=== PATIENT | male | born 1955 | race Caucasian/White ===

== ENCOUNTER 2023-09-10 08:12 | Outpatient (AMB) | payer MEDICARE, MEDICAID, SELFPAY ==
[2023-09-10 08:25] VITALS: BP 96/62; BMI 28.3
--- NOTE | 2023-09-10 08:25 | MHC.OFFVIS ---
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 He reports main concern today is his bilateral shoulder pain. This limits his ability to care for himself and perform activities of daily living. Pain has been present for last several years, progressively worsening. Rated today as 7/10, constant, worse with activity . He denies inciting injury or trauma. 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 Denies radiation of the pain down either upper extremity. Denies burning, tingling, pins and needles of either upper extremity He does endorse some difficulty with use of both arms secondary to shoulder pain. Inability to raise arms over his head secondary to bilateral shoulder pain. Pain with behind the back reach. Patient states he has had x-rays for his shoulders, results are not available for review. He had MRI of his neck <1 year ago which is also unavailable for review. Results of x-ray and MRI have been requested from his primary care doctor's office Patient completed physical therapy approximately 6 months ago with no help he continues with home exercise program. He takes Tylenol with minimal relief. He is unable to take nonsteroidal anti-inflammatory medications secondary to use of Xarelto. Patient was prescribed gabapentin by his primary care doctor, he will be picking it up from the pharmacy and starting tomorrow. In terms of muscle damage condition is described as aching, stabbing, sharp, shooting, dull, tiring Pain is negatively impacting patient's enjoyment of life, general activity, mood, recreational activities, sleep and walking. Patient is currently on Xarelto. Denies implantable devices, pacemaker defibrillator Reports quit drinking alcohol 1 year ago. Denies current use of tobacco, nicotine or illicit substances. [facility] Medical History (Updated 09/10/23 @ 12:41 by Aminah Cosby, FILLING OPERATOR, CUSTOMER MANAGEMENT SPECIALIST) Alcohol dependence Essential hypertension Pulmonary embolism Joint pain Hyperlipemia Atrial fibrillation Hyperthyroidism Major depression Degenerative joint disease involving multiple joints Phlebitis and thrombophlebitis Gouty arthropathy Benign essential HTN Adenomatous colon polyp Pneumonia Deep venous thrombosis Tobacco use Colonoscopy refused Chest pain Impaired fasting glucose Dyspnea Hypercoagulable state Posterior vitreous detachment Gastro-esophageal reflux Social History (Updated 09/10/23 @ 08:29 by TIMBO Short) Patient Tobacco Use Status: Former Tobacco user Review of Systems Const All systems reviewed & are unremarkable except as noted in HPI and below Physical Exam Vital Signs: Last Vital Signs BP 96/62 09/10/23 08:25 BMI result Body Mass Index 28.3 General: awake, alert, oriented. Answers questions appropriately. Fully engaged in examination. Skin: warm, dry, intact HEENT: Normocephalic. Hearing intact. Cardiac: External chest normal in appearance. Respiratory: No cough, audible wheezing or stridor. Abdomen: without gross distension. MS: Cervical: Full ROM. Spurling positive. Minimally tender over midline vertebrae and paraspinal muscles. nontender over trapezius bilaterally BUE: significantly limited ROM. pain with limited overhead reach. pain with behind back reach. Crossbody reach without pain increase. Tenderness over GH and AC. Neurological: Oriented to person, place, time and situation. Thought process intact. No gait abnormalities appreciated. Psychiatric: Appropriate mood and affect. Good judgment and insight. Assessment & Plan Assessment & Plan (1) Right shoulder pain: Code(s): M25.511 - Pain in right shoulder Category: Medical (2) Left shoulder pain: Code(s): M25.512 - Pain in left shoulder Category: Medical (3) Cervical spondylosis: Code(s): M47.812 - Spondylosis without myelopathy or radiculopathy, cervical region Category: Medical Plan Tay is a very pleasant 67 year old male who presented to the office today for evaluation and management of his chronic neck and bilateral shoulder pain. He has exhausted conservative therapy including PT, OTC medications, ice, heat and HEP. He is unable to take NSAIDs d/t current use of Xarelto. Main concern today is his bilateral shoulder pain, he would like to focus on this first. Given his significantly limited ROM which greatly impact his activities of daily living will refer to ortho for further eval. Records have been requested from pcp office including xray/MRI results for review. Start Gabapentin as planned, will discuss therapeutic effect at next visit. Patient will follow up in the office in 1 month, sooner if needed. Orders: Referrals Orthopedics Referral M25.511 - Pain in right shoulder, M25.512 - Pain in left shoulder Coding Level of Care Code New Pt Level 4 (68854) Diagnoses Right shoulder pain M25.511 Left shoulder pain M25.512 Cervical spondylosis M47.812
== END 2023-09-10 09:07 | disposition home or self-care (01) ==
PROVIDERS: PCP Nurse Practitioner; Referring Provider Nurse Practitioner; Visit Provider Registered Nurse Emergency
DX: M25.511 Pain in right shoulder (principal); M25.512 Pain in left shoulder; M47.812 Spondylosis without myelopathy or radiculopathy, cervical region
CPT/HCPCS: 99204

== ENCOUNTER → 2023-09-10 08:12 | Outpatient (BNVA) | payer MEDICARE, MEDICAID, SELFPAY | PROVIDERS: PCP Nurse Practitioner; Referring Provider Nurse Practitioner; Visit Provider Registered Nurse Emergency | DX: M25.511 Pain in right shoulder (principal); M25.512 Pain in left shoulder; M47.812 Spondylosis without myelopathy or radiculopathy, cervical region | CPT/HCPCS: 99202 ==

== ENCOUNTER 2023-10-01 09:35 | Outpatient (AMB) | payer MEDICARE, MEDICAID, SELFPAY ==
[2023-10-01 09:46] VITALS: BP 129/75; PULSE 54; RESP 14; O2SAT 96; BMI 26.5
--- NOTE | 2023-10-01 09:46 | MHC.OFFVIS ---
Vital Signs 10/01/23 09:46 Height 5 ft 11 in Weight 190 lb BMI 26.5 BP 129/75 Blood Pressure Location Rt brachial Position Sitting Respiration 14 Pulse 54 Pulse Source Pulse Oximeter Pulse Oximetry (%) 96 Oxygen Delivery Method Room Air Intake Visit Reasons: 3 week follow up Allergies lisinopril Allergy (Unknown, Verified 10/01/23 09:48) Cough Medication List - Last Reconciled 10/01/23 by Liana Gonzalez, TALAT allopurinol 200 mg PO DAILY atenolol mg PO clobetasol 0.05% topical famotidine 20 mg PO BID PRN levothyroxine 175 mcg PO DAILY rivaroxaban (Xarelto) 20 mg PO DAILY HPI Comments Details: Patient presents back to the office today for one-month follow-up Main concern is his bilateral shoulder pain, he was referred to Orthopedics at last visit. He has an appointment with them pending for the beginning of next month. Started gabapentin after last visit. Made him feel sleepy but did not notice any improvement in his symptoms. He has not had any injections to the shoulders in the past, he is not looking for injections at this time and would like to be evaluated by Orthopedics for consideration of surgery. Prior: Tay is a very pleasant 67 year old male who presents to the office today for evaluation and management of his chronic neck and bilateral shoulder pain. He reports main concern today is his bilateral shoulder pain. This limits his ability to care for himself and perform activities of daily living. Pain has been present for last several years, progressively worsening. Rated today as 7/10, constant, worse with activity . He denies inciting injury or trauma. 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 Denies radiation of the pain down either upper extremity. Denies burning, tingling, pins and needles of either upper extremity He does endorse some difficulty with use of both arms secondary to shoulder pain. Inability to raise arms over his head secondary to bilateral shoulder pain. Pain with behind the back reach. Patient states he has had x-rays for his shoulders, results are not available for review. He had MRI of his neck <1 year ago which is also unavailable for review. Results of x-ray and MRI have been requested from his primary care doctor's office Patient completed physical therapy approximately 6 months ago with no help he continues with home exercise program. He takes Tylenol with minimal relief. He is unable to take nonsteroidal anti-inflammatory medications secondary to use of Xarelto. Patient was prescribed gabapentin by his primary care doctor, he will be picking it up from the pharmacy and starting tomorrow. In terms of muscle damage condition is described as aching, stabbing, sharp, shooting, dull, tiring Pain is negatively impacting patient's enjoyment of life, general activity, mood, recreational activities, sleep and walking. Patient is currently on Xarelto. Denies implantable devices, pacemaker defibrillator Reports quit drinking alcohol 1 year ago. Denies current use of tobacco, nicotine or illicit substances. [facility] Medical History (Updated 09/10/23 @ 12:41 by Aminah Cosby APRN, RESOURCE COORDINATOR) Alcohol dependence Essential hypertension Pulmonary embolism Joint pain Hyperlipemia Atrial fibrillation Hyperthyroidism Major depression Degenerative joint disease involving multiple joints Phlebitis and thrombophlebitis Gouty arthropathy Benign essential HTN Adenomatous colon polyp Pneumonia Deep venous thrombosis Tobacco use Colonoscopy refused Chest pain Impaired fasting glucose Dyspnea Hypercoagulable state Posterior vitreous detachment Gastro-esophageal reflux Social History (Updated 09/10/23 @ 08:29 by Shakira Solano [facility]) Patient Tobacco Use Status: Former Tobacco user Review of Systems Const All systems reviewed & are unremarkable except as noted in HPI and below Physical Exam Vital Signs: Last Vital Signs Pulse 54 10/01/23 09:46 Resp 14 10/01/23 09:46 BP 129/75 10/01/23 09:46 Pulse Ox 96 10/01/23 09:46 Oxygen Delivery Method Room Air 10/01/23 09:46 BMI result Body Mass Index 26.5 General: awake, alert, oriented. Answers questions appropriately. Fully engaged in examination. Skin: warm, dry, intact HEENT: Normocephalic. Hearing intact. Cardiac: External chest normal in appearance. Respiratory: No cough, audible wheezing or stridor. Abdomen: without gross distension. MS: Cervical: Full ROM. Minimally tender over midline vertebrae and paraspinal muscles. nontender over trapezius bilaterally BUE: significantly limited ROM. pain with attempted overhead reach. pain with behind back reach. Crossbody reach without pain increase. Tenderness over GH and AC. Neurological: Oriented to person, place, time and situation. Thought process intact. No gait abnormalities appreciated. Psychiatric: Appropriate mood and affect. Good judgment and insight. Results Reviewed Results Reviewed: 12/2019 x-ray cervical spine Assessment & Plan Assessment & Plan (1) Right shoulder pain: Code(s): M25.511 - Pain in right shoulder Category: Medical (2) Left shoulder pain: Code(s): M25.512 - Pain in left shoulder Category: Medical (3) Cervical spondylosis: Code(s): M47.812 - Spondylosis without myelopathy or radiculopathy, cervical region Category: Medical Plan Tay is a very pleasant 67 year old male who presented to the office today for evaluation and management of his chronic neck and bilateral shoulder pain. He has exhausted conservative therapy including PT, OTC medications, ice, heat and HEP. He is unable to take NSAIDs d/t current use of Xarelto. Patient would like to focus on his bilateral shoulder pain. Awaiting upcoming appointment with Orthopedics. Discussed options for treatment but he declines to proceed with x-rays or steroid injections. He hopes to be evaluated by Orthopedics for consideration of surgical repair. Discontinue gabapentin. We did discuss option for dose increase but as the medication makes the patient feel sleepy he agrees that a dose increase may not be in his best interest. Will try methocarbamol 500 mg p.o. t.i.d. as needed. Patient advised on cautions for use Patient will follow up in the office after orthopedic evaluation, sooner if needed. Medications: New methocarbamol Discontinue use of Cyclobenzaprine No driving while taking this medication. Do no take with alcohol or other PRN OCCUPATIONAL THERAPIST Depressants 500 mg PO TID PRN 90 tabs 1RF muscle spasm methocarbamol No driving while taking this medication. Do no take with alcohol or other PRN OCCUPATIONAL THERAPIST Depressants 500 mg PO TID PRN 90 tabs 1RF muscle spasm Coding Level of Care Code Est Pt Level 3 (00053) Diagnoses Right shoulder pain M25.511 Left shoulder pain M25.512 Cervical spondylosis M47.812
== END 2023-10-01 10:09 | disposition home or self-care (01) ==
PROVIDERS: PCP Nurse Practitioner; Visit Provider Registered Nurse Emergency
DX: M25.511 Pain in right shoulder (principal); M25.512 Pain in left shoulder; M47.812 Spondylosis without myelopathy or radiculopathy, cervical region
CPT/HCPCS: 99213

== ENCOUNTER → 2023-10-01 09:35 | Outpatient (BNVA) | payer MEDICARE, MEDICAID, SELFPAY | PROVIDERS: PCP Nurse Practitioner; Visit Provider Registered Nurse Emergency | DX: M25.511 Pain in right shoulder (principal); M25.512 Pain in left shoulder; M47.812 Spondylosis without myelopathy or radiculopathy, cervical region | CPT/HCPCS: 99212 ==

== ENCOUNTER 2023-10-28 09:12 | Outpatient (REF) | payer MEDICARE, MEDICAID, SELFPAY ==
--- NOTE | ~2023-10-28 | XR_ITS ---
EXAMINATION: Bilateral shoulder series CLINICAL INFORMATION: pain in the right and left shoulders COMPARISON: None. TECHNIQUE: 2 views of each shoulder FINDINGS: Right shoulder: Glenohumeral joint: Severe joint space narrowing with prominent marginal osteophytes indicative of severe osteoarthritis there is either a large loose body measuring 3.2 cm or ossification of the inferior capsule related to old tear or adjacent heterotopic ossification Acromioclavicular joint normal. Surrounding bone and soft tissues are unremarkable. Left shoulder: Glenohumeral joint: Severe osteoarthritis manifested by severe joint space narrowing and prominent marginal osteophytes extending off the inferior aspect of the humeral head. Acromioclavicular joint is normal. Surrounding bones and soft tissues are unremarkable. XR/XR shoulder LT min 2V IMPRESSION: RIGHT SHOULDER: Severe osteoarthritis of the glenohumeral joint with possible loose body. LEFT SHOULDER: Severe osteoarthritis of the glenohumeral joint. Electronically signed by: Tee Ann MD 11/20/2023 10:32 PM EDT
--- NOTE | ~2023-10-28 | XR_ITS ---
EXAMINATION: Bilateral shoulder series CLINICAL INFORMATION: pain in the right and left shoulders COMPARISON: None. TECHNIQUE: 2 views of each shoulder FINDINGS: Right shoulder: Glenohumeral joint: Severe joint space narrowing with prominent marginal osteophytes indicative of severe osteoarthritis there is either a large loose body measuring 3.2 cm or ossification of the inferior capsule related to old tear or adjacent heterotopic ossification Acromioclavicular joint normal. Surrounding bone and soft tissues are unremarkable. Left shoulder: Glenohumeral joint: Severe osteoarthritis manifested by severe joint space narrowing and prominent marginal osteophytes extending off the inferior aspect of the humeral head. Acromioclavicular joint is normal. Surrounding bones and soft tissues are unremarkable. XR/XR shoulder RT min 2V IMPRESSION: RIGHT SHOULDER: Severe osteoarthritis of the glenohumeral joint with possible loose body. LEFT SHOULDER: Severe osteoarthritis of the glenohumeral joint. Electronically signed by: Tee Ann MD 11/20/2023 10:32 PM EDT
== END 2023-10-28 09:13 | disposition home or self-care (01) ==
LOC: HO.HOSX 09:12
PROVIDERS: Visit Provider Orthopaedic Surgery
DX: M25.512 Pain in left shoulder (principal); M25.511 Pain in right shoulder; M19.012 Primary osteoarthritis, left shoulder; M19.011 Primary osteoarthritis, right shoulder; M25.612 Stiffness of left shoulder, not elsewhere classified; M25.611 Stiffness of right shoulder, not elsewhere classified
CPT/HCPCS: 73030; 99202

== ENCOUNTER 2023-10-28 09:18 | Outpatient (AMB) | payer MEDICARE, MEDICAID, SELFPAY ==
--- NOTE | 2023-10-28 09:31 | MHC.OFFVIS ---
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 Patient reports bilateral shoulder pain has been present for a while. Limited ROM. He tried and failed PT twice. He avoids taking NSAID's due to him being on a blood thinner and takes Tylenol if needed. 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 Allergies lisinopril Allergy (Unknown, Verified 10/28/23 09:42) Cough Medication List - Last Reconciled 10/28/23 by Frandy Carreno MD allopurinol 200 mg PO DAILY atenolol mg PO clobetasol 0.05% topical famotidine 20 mg PO BID PRN levothyroxine 175 mcg PO DAILY methocarbamol 500 mg PO TID PRN rivaroxaban (Xarelto) 20 mg PO DAILY [facility] Medical History (Updated 09/10/23 @ 12:41 by Aminah Cosby APRN, STRIKE OUT MACHINE OPERATOR) Alcohol dependence Essential hypertension Pulmonary embolism Joint pain Hyperlipemia Atrial fibrillation Hyperthyroidism Major depression Degenerative joint disease involving multiple joints Phlebitis and thrombophlebitis Gouty arthropathy Benign essential HTN Adenomatous colon polyp Pneumonia Deep venous thrombosis Tobacco use Colonoscopy refused Chest pain Impaired fasting glucose Dyspnea Hypercoagulable state Posterior vitreous detachment Gastro-esophageal reflux Social History (Updated 10/28/23 @ 09:39 by Magdalena Archuleta Franko) Patient Tobacco Use Status: Former Tobacco user Current occupational status: unemployed Physical Exam Vital Signs: BMI result Body Mass Index 26.5 Const Other: Well-nourished well-developed very friendly male awake alert and oriented x3 in no acute distress Extrem Other: Bilateral upper extremity examination shows good capillary refill, no skin lesions noted, normal sensation light touch Bilateral shoulder examination shows limited active and passive range of motion, pain with range of motion, no instability Results Reviewed Results Reviewed: X-rays of the patient's bilateral shoulder show end-stage glenohumeral joint degenerative changes with joint space narrowing, subchondral sclerosis and large osteophyte formation, no acute bony abnormalities Assessment & Plan Assessment & Plan (1) Left shoulder pain: Code(s): M25.512 - Pain in left shoulder Category: Medical (2) Right shoulder pain: Code(s): M25.511 - Pain in right shoulder Category: Medical Plan Mr. Conde presents with bilateral shoulder pains and limited range of motion due to end-stage glenohumeral joint degenerative joint disease. I had a lengthy discussion with the patient regarding the treatment options. At this point the patient appears to be failing continued non operative treatments. He may be a candidate for total shoulder replacement surgery. Thus, I will have him evaluated by my partner, Dr. Mello, to further discuss the risks and benefits of this type of procedure. He will continue with his range of motion exercises in the meantime. Feel free to call me at any time should questions regarding his orthopedic management arise. Thank you very much for asking me to see this very friendly patient. I spent 21 minutes in reviewing the patient's records and imaging studies, seeing the patient and documenting in the medical record. Orders: Orders XR shoulder LT min 2V Today M25.512 - Pain in left shoulder XR shoulder RT min 2V Today M25.511 - Pain in right shoulder Coding Level of Care Code New Pt Level 3 (79413) Diagnoses Left shoulder pain M25.512 Right shoulder pain M25.511
[2023-10-28 09:39] VITALS: BMI 26.5
== END 2023-10-28 09:56 | disposition home or self-care (01) ==
PROVIDERS: PCP Nurse Practitioner; Visit Provider Orthopaedic Surgery
DX: M25.512 Pain in left shoulder (principal); M25.511 Pain in right shoulder
CPT/HCPCS: 99203

== ENCOUNTER 2023-11-20 09:14 | Outpatient (AMB) | payer MEDICARE, MEDICAID, SELFPAY ==
--- NOTE | 2023-11-20 09:18 | A.OFFVIS_ITS ---
Vital Signs 11/20/23 09:19 Height 5 ft 11 in Weight 190 lb BMI 26.5 Intake Visit Reasons: OV- LT shoulder pain, possible replacement surgery Intake Note: Leon is a 67 year old right hand dominant male who presents today for a follow up of his left shoulder, he was referred by Dr. Carreno to discuss possible shoulder replacement. Allergies lisinopril Allergy (Unknown, Verified 11/20/23 09:21) Cough HPI HPI OV- LT shoulder pain, possible replacement surgery: Details: Leon is a 67 year old right hand dominant male who presents today for a follow up of his left shoulder, he was referred by Dr. Carreno to discuss possible shoulder replacement. 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 He states he is currently without a home and has stopped drinking for a year but is thinking about restarting drinking because he is so unhappy. He does have bilateral shoulder pain left greater than right and has limited motion. [facility] Medical History (Updated 11/20/23 @ 11:22 by Iglesia Mello MD) Alcohol dependence Essential hypertension Pulmonary embolism Joint pain Hyperlipemia Atrial fibrillation Hyperthyroidism Major depression Degenerative joint disease involving multiple joints Phlebitis and thrombophlebitis Gouty arthropathy Benign essential HTN Adenomatous colon polyp Pneumonia Deep venous thrombosis Tobacco use Colonoscopy refused Chest pain Impaired fasting glucose Dyspnea Hypercoagulable state Posterior vitreous detachment Gastro-esophageal reflux Social History (Updated 10/28/23 @ 09:39 by Magdalena Archuleta Franko) Patient Tobacco Use Status: Former Tobacco user Current occupational status: unemployed Physical Exam Vital Signs: BMI result Body Mass Index 26.5 Extrem Other: No external rotation passive or active bilateral shoulders. Abduction to approximately 60 degrees with scapular recruitment. He can not get his hand to the back of his head on either side. Results Reviewed Results Reviewed: I personally reviewed relevant radiographs. Severe bilateral glenohumeral osteoarthritis Assessment & Plan Assessment & Plan (1) Osteoarthritis of shoulders, bilateral: Code(s): M19.011 - Primary osteoarthritis, right shoulder; M19.012 - Primary osteoarthritis, left shoulder Category: Medical Plan: This is a 67-year-old gentleman with severe osteoarthritis bilateral shoulders. I had a long conversation regarding treatment options including surgical and nonsurgical ones. He has multiple medical conditions and has a unclear relati onship with alcohol. I do not think he is a good surgical candidate and I think he agrees with me. My recommendations for activity modification and he can follow up as needed but I do not recommend surgery at this time. (2) Alcohol dependence: Code(s): F10.20 - Alcohol dependence, uncomplicated Category: Medical Plan: (3) Pulmonary embolism: Code(s): I26.99 - Other pulmonary embolism without acute cor pulmonale Category: Medical Plan: Coding Level of Care Code Est Pt Level 4 (20732) Diagnoses Osteoarthritis of shoulders, bilateral M19.011; M19.012 Alcohol dependence F10.20 Pulmonary embolism I26.99
[2023-11-20 09:19] VITALS: BMI 26.5
== END 2023-11-20 10:12 | disposition home or self-care (01) ==
PROVIDERS: PCP Nurse Practitioner; Visit Provider Orthopaedic Surgery
DX: M19.011 Primary osteoarthritis, right shoulder (principal); M19.012 Primary osteoarthritis, left shoulder; F10.20 Alcohol dependence, uncomplicated; I26.99 Other pulmonary embolism without acute cor pulmonale
CPT/HCPCS: 99213

== ENCOUNTER → 2023-11-20 09:14 | Outpatient (BNVA) | payer MEDICARE, MEDICAID, SELFPAY | PROVIDERS: PCP Nurse Practitioner; Visit Provider Orthopaedic Surgery | DX: M19.011 Primary osteoarthritis, right shoulder (principal); M19.012 Primary osteoarthritis, left shoulder; I26.99 Other pulmonary embolism without acute cor pulmonale; F10.20 Alcohol dependence, uncomplicated | CPT/HCPCS: 99212 ==